=== PATIENT | female | born 1970 | race American Indian/Alaskan Native ===

== ENCOUNTER 2016-09-05 15:31 | Outpatient (CLI) | payer BC | END 2016-09-05 15:32 | disposition home or self-care (01) | LOC: LABHHL 15:31 | PROVIDERS: ATTEND Internal Medicine Gastroenterology | DX: K21.9 Gastro-esophageal reflux disease without esophagitis (principal) | CPT/HCPCS: 88305; 88342 ==

== ENCOUNTER 2017-04-22 14:02 | Outpatient (CLI) | payer BC ==
--- NOTE | 2017-04-22 16:01 | XRay Report ---
Left knee: Pain. Minimal articular spurring is identified involving the medial tibial margin. Small lateral spurs are identified from the patella but the retropatellar space is preserved. The bones are well-mineralized. The articular surfaces are smooth. There is good alignment. No swelling and no effusion identified. Impression: Mild degenerative changes as described.
== END 2017-04-22 14:03 | disposition home or self-care (01) ==
LOC: SPVIMAG 14:02
PROVIDERS: ATTEND Orthopaedic Surgery
DX: M17.12 Unilateral primary osteoarthritis, left knee (principal)